=== PATIENT | male | born 1980 | race African-American/Black ===

== ENCOUNTER 2022-12-18 14:09 | Observation (INO) | payer BC ==
[2022-12-18] MEDS ORDERED: Ondansetron PF 4 MG/2 ML Vial ONE (14:38)
[2022-12-18] MEDS ORDERED: Morphine 4 MG/ML VIAL ONE (14:38)
[2022-12-18 14:56] LABS: #Eosinphils 0.2 thou/uL (0.0-0.7); #Lymphocytes 2.1 thou/uL (1.20-3.40); #Monocytes 0.8 thou/uL (0.11-0.59); #Neutrophils 7.7 thou/uL (1.40-6.50); %Basophils 0.1 % (0.0-1.0); %Eosinophils 2.3 % (0.0-10.0); %Lymphocytes 19.4 % (21.0-51.0); %Monocytes 7.4 % (0.0-10.0); %Neutrophils 70.9 % (42.0-75.0); Mean Corpuscular Hemoglobin 24.3 pg (27.0-31.0); Mean Corpuscular Volume 75.8 fl (78.0-98.0); Mean Platelet Volume 8.2 fL (7.4-10.4); Platelet Count 268 10x3/uL (130-400); RBC Distribution Width 14.4 % (11.5-14.5); Red Blood Cell (RBC) Count 5.77 mill/uL (4.70-6.10); White Blood Cell (WBC) Count 10.8 10x3/uL (4.8-10.8)
[2022-12-18 15:19] LABS: ALT (SGPT) 24 U/L (8-55); AST (SGOT) 16 U/L (5-34); Albumin 3.6 g/dL (3.5-5.0); Alkaline Phosphatase 64 U/L (40-110); Anion Gap 9 mmol/L (10-20); BUN (Urea Nitrogen) 7 mg/dL (8.9-20.6); Bilirubin, Total 0.2 mg/dL (0.2-1.2); Calc. Creatinine Clearance 0 mL/min (70-130); Calcium 9.5 mg/dL (7.8-10.44); Carbon Dioxide 28 mmol/L (22-29); Chloride 105 mmol/L (98-107); Estimated GFR 99; Globulin 2.4 g/dL (2.4-3.5); Glucose 87 mg/dL (70-105); Lipase 36 U/L (8-78); Potassium 3.8 mmol/L (3.5-5.1); Sodium 138 mmol/L (136-145)
[2022-12-18] MEDS ORDERED: Dextrose 50% Abboject 50 ML SYRINGE SLOW IVP PRN (17:07)
[2022-12-18] MEDS ORDERED: Calcium Carbonate 500 MG ChewTAB PO PRN (17:07)
[2022-12-18] MEDS ORDERED: Ipratropium/Albuterol 3 ML NEB NEB PRN (17:07)
[2022-12-18] MEDS ORDERED: Dextrose 5% in Water 1,000 ML IV PRN (17:07)
[2022-12-18] MEDS ORDERED: Mag-Al 1200 mg/1200 mg/30 ML UDCUP PO PRN (17:07)
[2022-12-18] MEDS ORDERED: hydrALAZINE 20 MG/ML VIAL SLOW IVP PRN (17:07)
[2022-12-18] MEDS ORDERED: Ondansetron PF 4 MG/2 ML Vial IVP PRN (17:07)
[2022-12-18] MEDS ORDERED: Promethazine HCl 25 MG/ML VIAL IM PRN (17:07)
[2022-12-18] MEDS ORDERED: Acetaminophen 325 MG TAB PO PRN (17:13)
[2022-12-18 17:26] LABS: SARS-CoV-2 NAA Rapid Test Not Detected (NotDetected)
[2022-12-18 19:00] LABS: Lactic Acid 0.8 mmol/L (0.5-2.2)
[2022-12-18] MEDS: Famotidine/PF 20 mg/2ml Vial SLOW IVP SCH (21:05)
[2022-12-18] MEDS: Lactated Ringer's 1,000 ML IV SCH (21:05)
[2022-12-18] MEDS: Famotidine 20 MG TAB PO SCH (21:05)
[2022-12-18] MEDS: Morphine 2 MG/ML VIAL SLOW IVP PRN (21:05)
[2022-12-18 21:11] VITALS: BMI 40.3
[2022-12-18 22:49] VITALS: BP 151/96; TEMP 98.1
[2022-12-19] MEDS: Morphine 2 MG/ML VIAL SLOW IVP PRN ×3 (01:20→11:27)
[2022-12-19] MEDS: Lactated Ringer's 1,000 ML IV SCH (04:49)
[2022-12-19] MEDS ORDERED: Clindamycin/D5W 900 MG in Premix Bag 1 BAG IVPB SCH (07:00)
[2022-12-19] MEDS ORDERED: Bupivacaine HCl 0.5%/Epinephrine 1:200,000/PF 30 ml Vial ONE (07:28)
[2022-12-19] MEDS ORDERED: Bupivacaine/Epinephrine 0.25% 30 ML VIAL ONE (07:28)
[2022-12-19] MEDS ORDERED: Fentanyl 250 MCG/5 ML VIAL ONE (07:36)
[2022-12-19] MEDS ORDERED: Midazolam HCl 2 mg/2 ml Vial ONE (07:36)
[2022-12-19] MEDS ORDERED: Clindamycin/D5W 900 mg/50 ml Premix Bag ONE (07:51)
[2022-12-19] MEDS ORDERED: Promethazine HCl 25 MG/ML VIAL IM PRN (08:14)
[2022-12-19] MEDS ORDERED: Ondansetron HCl/PF 4 MG/2 ML Vial IVP PRN (08:14)
[2022-12-19] MEDS ORDERED: Ketorolac Tromethamine 30 MG/ML VIAL IVP PRN ×2 (08:14)
[2022-12-19] MEDS ORDERED: PROPOFOL 200 MG/20 ML VIAL ONE (08:18)
[2022-12-19] MEDS ORDERED: Rocuronium Bromide 10 MG/ML (10ML VIAL) ONE (08:18)
[2022-12-19] MEDS ORDERED: Dexamethasone 20 MG/5 ML VIAL ONE (08:18)
[2022-12-19] MEDS ORDERED: Ketorolac Tromethamine 30 MG/ML VIAL ONE (08:18)
[2022-12-19] MEDS ORDERED: Lidocaine 1% PF 5 ML VIAL ONE (08:18)
[2022-12-19] MEDS ORDERED: NEOSTIGMINE 3 MG/3 ML SYR 3 MG/3 ML SYRINGE ONE (08:18)
[2022-12-19] MEDS ORDERED: ePHEDrine 50 MG/ML VIAL ONE (08:18)
[2022-12-19] MEDS ORDERED: Glycopyrrolate 0.2 MG/ML 5 ML SYRINGE ONE (08:18)
[2022-12-19] MEDS ORDERED: Ondansetron PF 4 MG/2 ML Vial ONE (08:18)
[2022-12-19] MEDS ORDERED: traMADol HCl 50 MG TAB PO PRN (09:45)
[2022-12-19] MEDS: Famotidine 20 MG TAB PO SCH (11:31)
[2022-12-19] MEDS: Famotidine/PF 20 mg/2ml Vial SLOW IVP SCH (11:31)
[2022-12-19] MEDS ORDERED: Lisinopril 20 MG TAB PO SCH (12:15)
[2022-12-20] MEDS ORDERED: Lisinopril 20 MG TAB PO SCH (09:00)
== END 2022-12-19 19:50 | disposition home or self-care (01) ==
LOC: ERS 14:09 → SJJU 17:07
PROVIDERS: ADMIT Surgery; ATTEND Surgery
PROC: 0FT44ZZ Resection of Gallbladder, Percutaneous Endoscopic Approach (ICD-10-PCS; principal; 2022-12-19)
DX: K80.64 Calculus of gallbladder and bile duct with chronic cholecystitis without obstruction (principal); K82.8 Other specified diseases of gallbladder; K76.0 Fatty (change of) liver, not elsewhere classified; I10 Essential (primary) hypertension; Z87.891 Personal history of nicotine dependence; Z79.899 Other long term (current) drug therapy; Z88.0 Allergy status to penicillin; Z20.822 Contact with and (suspected) exposure to COVID-19
CPT/HCPCS: 36415; 76705; 80053; 83605; 83690; 85025; 88304; 93005; 94760; 96361; 96374; 96375; 96376; C1889; G0378; J1100; J1885; J2250; J2270; J2272; J2405; J2704; J3010; J3490; J7120; S0028; U0002